=== PATIENT | female | born 1960 | race Caucasian/White ===

== ENCOUNTER 2018-01-24 18:15 | Inpatient (IN) | payer OTHER ==
[~2018-01-24] VITALS: Ht 162.6 cm; Wt 58.1 kg
--- NOTE | ~2018-01-24 | PROC ---
[address] [address] PROCEDURE REPORT Name: JP WOODS Room: [address] IN M.R.#: [id number] Admission: 01/24/18 Attend Phys: Damián Gordillo MD Discharge: 01/29/18 Date of : 62 Report #: [id number] THIS REPORT FOR: //name// For GI report, Please see the Provation report in Perceptive 7 content. By: 1256Medical Records Staff ANTONIO /JOSE
[2018-01-24 18:44] VITALS: BP 150/100
[2018-01-24] MEDS ORDERED: LISINOPRIL10 MG PO (18:47)
[2018-01-24] MEDS ORDERED: CHLORDIAZEPOXID25 M1 PO (19:44)
[2018-01-24 20:13] LABS: HEMATOCRIT 42.8 % (37.0-47.0); HEMOGLOBIN 14.4 gm/dL (12.0-15.0); MCH 35.2 pg (26.0-34.0); MCHC 33.7 g/dL (28.0-37.0); MCV 104.6 fL (80.0-100.0); MPV 8.2 fl. (7.2-11.1); NUCLEATED RBCS 0 /100WBC; PLATELET COUNT* 198 thou/uL (150-400); RDW-CV 14.4 % (10.5-14.5); WBC 15.4 thou/uL (4.0-11.0)
[2018-01-24 20:24] LABS: INR 1.3; PROTIME 13.8 Seconds (9.20-11.50)
[2018-01-24 20:27] LABS: ANION GAP 7 mmol/L (7-16); BUN 4 mg/dL (7-18); CALCIUM 8.8 mg/dL (8.5-10.1); CHLORIDE 99 mmol/L (98-107); CO2 30 mmol/L (21-32); CREATININE 0.7 mg/dL (0.6-1.3); GLUCOSE 107 mg/dL (70-99); POTASSIUM 3.5 mmol/L (3.5-5.1); SODIUM 136 mmol/L (136-145)
[2018-01-24 20:38] LABS: ALBUMIN 3.1 g/dL (3.4-5.0); ALKALINE PHOSPHATASE 382 U/L (46-116); LIPASE 145 U/L (73-393); NT-PRO BRAIN NAT PEPTIDE 172 pg/mL (<300); SGOT 131 U/L (15-37); SGPT 98 U/L (30-65); TOTAL BILIRUBIN 1.8 mg/dL (<0.1-1.0); TOTAL PROTEIN 7.2 g/dL (6.4-8.2); TROPONIN-I LEVEL <0.06 ng/mL (<0.06)
[2018-01-24 20:43] LABS: URINE BLOOD 3+ (Negative); URINE CLARITY CLEAR; URINE COLOR YELLOW; URINE GLUCOSE-RANDOM TRACE (Negative); URINE KETONES TRACE (Negative); URINE NITRITE-REFLEX NEGATIVE (Negative); URINE PROTEIN 2+ (Negative); URINE SPECIFIC GRAVITY 1.015 (1.005-1.030)
[2018-01-24 20:46] LABS: AMMONIA < 10 umol/L (11-32)
[2018-01-24 20:47] LABS: ICTOTEST (BILI CONFIRMATORY) Positive (Negative); URINE BILIRUBIN 2+ (Negative); URINE LEUKOCYTES-REFLEX 3+ (Negative)
[2018-01-24 20:50] LABS: HYALINE CASTS >10 Many /LPF (None Seen); MUCUS 0-3 Light strn/LPF (None Seen); SQUAMOUS >10 Many /LPF (0-3)
[2018-01-24 20:51] LABS: CRYSTALS None Seen /LPF (None Seen); URINE RBC 3-10 Few /HPF (0-2)
[2018-01-24 21:00] LABS: ABSOLUTE LYMPHOCYTES 1.2 thou/uL (0.8-5.3); ABSOLUTE MONOCYTES 0.8 thou/uL (0.0-1.2); ABSOLUTE NEUTROPHILS 13.4 thou/uL (1.6-8.1); PLATELET ESTIMATE ADEQUATE
[2018-01-24 22:54] VITALS: BP 141/74
[2018-01-24 23:15] VITALS: BP 137/81
[2018-01-25 00:01] LABS: AMP/METHAMP Negative (Negative); BARBITURATES Negative (Negative); BENZODIAZEPINES POSITIVE (Negative); COCAINE Negative (Negative); METHADONE Negative (Negative); OPIATES Negative (Negative); PCP Negative (Negative); THC Negative (Negative)
[2018-01-25 01:15] LABS: HEMATOCRIT 37.4 % (37.0-47.0); HEMOGLOBIN 12.5 gm/dL (12.0-15.0); MCH 35.6 pg (26.0-34.0); MCHC 33.3 g/dL (28.0-37.0); MCV 106.7 fL (80.0-100.0); MPV 8.5 fl. (7.2-11.1); RBC 3.51 mil/uL (4.20-5.00); RDW-CV 14.6 % (10.5-14.5); WBC 13.6 thou/uL (4.0-11.0)
[2018-01-25 01:37] LABS: ALBUMIN 2.4 g/dL (3.4-5.0); CALCIUM 8.3 mg/dL (8.5-10.1); CREATININE 0.7 mg/dL (0.6-1.3); TOTAL BILIRUBIN 1.3 mg/dL (<0.1-1.0); TOTAL PROTEIN 5.8 g/dL (6.4-8.2)
[2018-01-25 04:03] VITALS: BP 113/67
[2018-01-25 07:00] VITALS: BP 118/73
--- NOTE | 2018-01-25 10:20 | EKG ---
[place] [address] ELECTROCARDIOGRAM REPORT Name: CHUCKJP Room: [address] ADM IN [facility].#: [id number] Admission: 01/24/18 Attend Phys: Damián Gordillo MD Discharge: Date of : 62 Report #: [id number] THIS REPORT FOR: //name// [facility] ED Test Date: 2018-01-24 Test Time: 19:28:53 Pat Name: JP WOODS Department: Room: [facility] Gender: F Exchange Architect: KISHORE : 1960 Requested By: Arlene Phan Order Number: [id number] MD: Ash Laurent Measurements Intervals [place] Rate: 110 P: 61 GA: 165 QRS: -21 QRSD: 83 T: 18 QT: 348 QTc: 471 Interpretive Statements Sinus tachycardia Borderline left axis deviation Low voltage, extremity and precordial leads Baseline wander in lead(s) II,III,aVF No previous ECG available for comparison Electronically Signed On 01-25-2018 10:19:56 CDT by Ash Laurent [email or web address] <ELECTRONICALLY SIGNED> By: Ash Laurent MD, FACC 01/25/18 1019 27 27 Ash Laurent MD, [facility] /EPI
[2018-01-25 12:22] VITALS: BP 118/68
[2018-01-25 16:30] VITALS: BP 118/82
[2018-01-25 20:02] VITALS: BP 120/75
[2018-01-26] VITALS (7 sets, daily range): BP systolic 103–137; BP diastolic 56–84
[2018-01-26 04:55] LABS: HEMATOCRIT 37.7 % (37.0-47.0); HEMOGLOBIN 12.5 gm/dL (12.0-15.0); MCH 35.7 pg (26.0-34.0); MCHC 33.2 g/dL (28.0-37.0); MCV 107.4 fL (80.0-100.0); MPV 8.8 fl. (7.2-11.1); RBC 3.51 mil/uL (4.20-5.00); WBC 10.9 thou/uL (4.0-11.0)
[2018-01-26 05:20] LABS: ALBUMIN 2.2 g/dL (3.4-5.0); CALCIUM 7.7 mg/dL (8.5-10.1); CREATININE 0.6 mg/dL (0.6-1.3); MAGNESIUM 1.3 mg/dL (1.8-2.4); PHOSPHORUS* 3.1 mg/dL (2.5-4.9); POTASSIUM 3.2 mmol/L (3.5-5.1); TOTAL BILIRUBIN 1.4 mg/dL (<0.1-1.0); TOTAL PROTEIN 5.5 g/dL (6.4-8.2)
[2018-01-27 04:00] VITALS: BP 108/69
[2018-01-27 05:00] LABS: HEMATOCRIT 37.4 % (37.0-47.0); HEMOGLOBIN 12.7 gm/dL (12.0-15.0); MCH 36.3 pg (26.0-34.0); MCHC 33.9 g/dL (28.0-37.0); MCV 107.2 fL (80.0-100.0); MPV 8.8 fl. (7.2-11.1); RBC 3.49 mil/uL (4.20-5.00); RDW-CV 14.1 % (10.5-14.5); WBC 11.9 thou/uL (4.0-11.0)
[2018-01-27 05:27] LABS: ALBUMIN 2.3 g/dL (3.4-5.0); CALCIUM 8.4 mg/dL (8.5-10.1); CREATININE 0.6 mg/dL (0.6-1.3); MAGNESIUM 1.4 mg/dL (1.8-2.4); POTASSIUM 3.9 mmol/L (3.5-5.1); TOTAL BILIRUBIN 1.5 mg/dL (<0.1-1.0); TOTAL PROTEIN 5.7 g/dL (6.4-8.2)
[2018-01-27 08:00] VITALS: BP 104/65
[2018-01-27 12:35] VITALS: BP 100/57
[2018-01-27 16:34] VITALS: BP 121/68
[2018-01-27 20:00] VITALS: BP 114/62
[2018-01-27 23:00] VITALS: BP 136/81
[2018-01-28] VITALS (17 sets, daily range): BP systolic 118–140; BP diastolic 71–84
[2018-01-28 10:07] LABS: ANA INTERPRETATION Negative (Negative)
--- NOTE | 2018-01-28 11:22 | CON ---
[address] [address] CONSULTATION Name: CHUCKJP Room: [address] IN M.R.#: [id number] Admission: 01/24/18 Attend Phys: Damián Gordillo MD Discharge: Date of : 62 Report #: [id number] THIS REPORT FOR: //name// CC: Damián Moy HISTORY OF PRESENT ILLNESS: The patient is a pleasant 57-year-old female with past medical history of alcohol abuse, who was referred by her PCP to be admitted to the hospital for elevated WBC count. She admits to having generalized weakness but denies any fevers. The patient denies any significant cough, nausea, vomiting or diarrhea. However, she does report intermittent dysuria. The patient reports drinking heavily in the past. She reports drinking excess every once for at least 20 years and would drink up to a fifth of hard liquor per day. The amount of liquor assumption has varied recently as she began attending alcohol addiction group sessions. However, she continues to drink alcohol despite this. She denies prior episodes of jaundice, confusion, abdominal distention, hematemesis or hematochezia. PAST MEDICAL HISTORY: Significant for alcohol abuse and hypertension. PAST SURGICAL HISTORY: None. FAMILY HISTORY: No family history of alcohol abuse, liver disease or colorectal cancer. SOCIAL HISTORY: The patient never smoked or consumed recreational drugs. At the current time, she drinks four glasses of vodka a day. REVIEW OF SYSTEMS: A comprehensive 10-point review of systems is negative except what is mentioned in the HPI. PHYSICAL EXAMINATION: VITAL SIGNS: Temperature 37.2, pulse rate 89, respirations 17, blood pressure 120/75 and pulse ox 97% on room air. GENERAL: The patient is alert, awake and oriented x 3. HEENT: Pupils are equal, round and reactive to light and accommodation. There is no scleral icterus. Mucous membranes are moist. There is no congestion. SKIN: There is no palmar erythema. No spider angiomata. NEUROLOGICAL: Does not demonstrate any asterixis. ABDOMEN: Soft. There is no distention. No guarding or rigidity. No fluid thrill. Bowel sounds are present. LUNGS: Clear to auscultation bilaterally. CARDIOVASCULAR: Rate and rhythm regular. S1 and S2 present. There is no pedal edema. LABORATORY DATA: Hemoglobin 12.5, hematocrit 37.4, MCV is 106.7 and WBC count 13.6. Creatinine 0.7. AST 102, ALT 79, alkaline phosphatase 311 and total [facility] [address] [place] [address] CONSULTATION Name: JP WOODS Room: [address] IN [facility]#: [id number] Admission: 01/24/18 Attend Phys: Damián Gordillo MD Discharge: Date of : 62 Report #: [id number] bilirubin 1.3. RADIOLOGICAL DATA: Abdominal ultrasound demonstrates small amount of ascites surrounding liver and spleen. They are too small for accurate paracentesis. Thrombosis of the left portal vein. ASSESSMENT AND PLAN: This is a very pleasant 57-year-old female with past medical history significant for alcohol abuse, was referred by her primary care physician when she was found to have elevated WBC count as an outpatient. The Gastrointestinal service has been consulted for evaluation of portal vein thrombosis. The patient has not had any overt signs of chronic liver disease on physical exam and abdominal imaging shows her spleen to be normal in size. However, there is trace ascites with a suggestion for portal hypertension. Given her significant history of alcohol abuse, the patient may have early cirrhosis causing this. I am going to order workup for chronic liver disease to rule out any other potential contributors to the liver disease. We will have to get an esophagogastroduodenoscopy to look for varices and then I would finally recommend a liver biopsy on Sunday for diagnosis of cirrhosis. Anticoagulation can be started after the liver biopsy is performed. For portal vein thrombosis, anticoagulation should be continued for 6 months, which usually results in recanalization. We will have to follow up with her in the Gastrointestinal Clinic for management of a chronic liver disease. Alcohol cessation has been strongly advised. <ELECTRONICALLY SIGNED> By: Jorge Richey MD 01/28/18 1122 1815 [id number] Richey MD /nt
[2018-01-29 04:15] VITALS: BP 112/66
[2018-01-29 05:39] LABS: HEMATOCRIT 35.9 % (37.0-47.0); HEMOGLOBIN 11.8 gm/dL (12.0-15.0); MCH 35.4 pg (26.0-34.0); MCHC 32.8 g/dL (28.0-37.0); MCV 107.7 fL (80.0-100.0); MPV 8.3 fl. (7.2-11.1); RBC 3.33 mil/uL (4.20-5.00); RDW-CV 13.8 % (10.5-14.5); WBC 11.4 thou/uL (4.0-11.0)
[2018-01-29 05:47] LABS: INR 1.4
[2018-01-29 05:53] LABS: ALBUMIN 2.4 g/dL (3.4-5.0); CALCIUM 8.2 mg/dL (8.5-10.1); CREATININE 0.6 mg/dL (0.6-1.3); POTASSIUM 4.2 mmol/L (3.5-5.1); TOTAL BILIRUBIN 1.5 mg/dL (<0.1-1.0); TOTAL PROTEIN 5.3 g/dL (6.4-8.2)
[2018-01-29 08:00] VITALS: BP 103/48
[2018-01-29 12:05] LABS: HEPATITIS B SURFACE AG Negative (Negative)
[2018-01-29] MEDS ORDERED: CIPRO500 MG PO (12:17)
[2018-01-29] MEDS ORDERED: VITAMIN B-1100 M1 PO (12:18)
[2018-01-29] MEDS ORDERED: PEPCID20 MG PO (12:18)
[2018-01-29 12:30] VITALS: BP 103/48
[2018-01-29 12:33] VITALS: BP 103/48
[2018-01-29 12:40] VITALS: BP 92/55
--- NOTE | 2018-02-14 12:05 | PATH ---
[address] [address] PATHOLOGY RPT PROCEDURE Name: CHUCKSTEPHANIE Room: [address] IN M.R.#: [id number] Admission: 01/24/18 Date of : 62 Discharge: 01/29/18 Report #: [id number] Path Case #: [id number] [facility] Accession Number: [id number] . 01 Material submitted: . LIVER . 01 Clinical history: . Cirrhosis . 02 Diagnosis: Liver, biopsy: - Hepatic parenchyma with macrosteatosis and portal inflammation - This case will be sent to [facility] for consultation, report to follow in an addendum. (MAP;02/04/2018) QMS/02/04/2018 . 02 Addendum: . Special studies report received from [address] [address], on case [id number], labeled with their number [id number], dated 02/08/2018. . [facility] Pathology Consultation . Pathology Consult . Interpretation . 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 (See comment.) . COMMENT Thank you for sending this case for consultation. I have reviewed this case, and I agree with your impression. The needle biopsy of the liver is an adequate specimen with many portal tracts for review. The portal tracts are expanded by mild inflammatory infiltrate with mild bile ductular proliferation and fibrosis. Focal interface activity is present. The interlobular bile duct branches are intact. An incidental von Meyenburg complex is also identified. The lobular parenchyma shows mild macrovesicular steatosis (approximately 20-30% of liver parenchyma), associated with focal ballooning degeneration and marked Meena body formation with prominent neutrophilic satellitosis. Scattered necroinflammation foci and acidophilic bodies can also be seen. Focal hepatocanalicular cholestasis is present. The Trichrome stain (block A1) [place] [address] PATHOLOGY RPT PROCEDURE Name: CHUCKSTEPHANIE Room: [address] DIS IN M.R.#: [id number] Admission: 01/24/18 Date of : 62 Discharge: 01/29/18 Report #: [id number] Path Case #: [id number] shows focal pericellular fibrosis and bridging fibrosis with regenerative nodules, consistent with evolving cirrhosis. The CMV immunostain (block A1) is negative. The copper stain (block A1) is negative. The submitted iron stain shows minimal hemosiderosis predominately in Kupffer cells. The PAS-D stain is negative for intracytoplasmic hyaline globules in hepatocytes. . The patient is a 57-year-old female with no detailed clinical information being provided. Her lab tests show AST 40, ALT 33, alkaline phosphatase 189, and total bilirubin at 1.5. As you can see, the findings in this liver biopsy are those of steatohepatitis with significant hepatocyte injury including Meena body formation and neutrophilic satellitosis. As you know, distinction between alcoholic liver disease (ALD) and nonalcoholic fatty liver disease (NAFLD) cannot be made with certainty based on morphologic evaluation; this requires correlation with the patient's clinical and laboratory data including the patient's gender, mean corpuscular volume (MCV), AST/ALT ratio and body mass index (BMI). An ALD/NAFLD Index (ANI) derived from these objective variables can help to differentiate ALD from NAFLD due to common metabolic disorders (Deniz W et al, Utility of a new model to diagnose an alcoholic basis for steatohepatitis. Gastroenterology 2006;131:1057-63). ANI cannot distinguish ALD from uncommon causes of NAFLD such as Oj's disease and drug-induced steatohepatitis (e.g. Amiodarone, Methotrexate, Corticosteroids, and Tamoxifen). ANI and probability of alcoholic liver disease can be calculated using the following web link: [email or web address]/gi-rst/jherhntzm13.html . Of note, significant Meena body formation with neutrophilic satellitosis is well known for amiodarone-induced liver injury. Clinical correlation is necessary to rule out this possibility or other drug/toxin-induced liver injury. . Thank you for the opportunity to be involved in this case. Your material is being returned. Please let us know of any pertinent follow-up. If you have any questions, please do not hesitate to reach me at [phone]. . Material Received A. [id number]: Liver 24 stained slides, 2 blocks . Report electronically signed by Jude Ruth M.D. [phone] I verify that I have examined all relevant slides/materials for the specimen(s) and rendered or confirmed the diagnosis. . . Disclaimer This test was developed and its performance [place] [address] PATHOLOGY RPT PROCEDURE Name: STEPHANIE WOODS Room: [address] IN [facility].#: [id number] Admission: 01/24/18 Date of : 62 Discharge: 01/29/18 Report #: [id number] Path Case #: [id number] [facility] in a manner consistent with CLIA requirements. This test has not been cleared or approved by the U.S. Food and Drug Administration. . A complete copy of the report is on file. . Professional services [place] [address]. [facility] by [facility] [address] [place] [address], [address], [place] [address]. . (AMJ 02/08/2018) . AZJ/02/08/2018 Addendum Electronically Signed by Robbie Brown M.D. . 02 Electronically signed: . Robbie Brown MD, Pathologist NPI- [id number] . 01 Gross description: . The specimen is received in formalin, labeled "Stephanie Woods, liver BX", are three jara brown needle cores measuring 2.0 cm, 1.9 cm and 1.8 cm in length and up to 0.1 cm in diameter, the specimen is entirely submitted in A1-A3. (SWS; 01/29/2018) SHS/SHS . 02 Pathologist provided ICD-10: K76.9 . 02 CPT . 231025 Specimen Comment: A courtesy copy of this report has been sent to Specimen Comment: [phone], , , . Specimen Comment: Report sent to ,DR SHETH,DR LONDON / Specimen Comment: DR VAZQUEZ Specimen Comment: A duplicate report has been generated due to demographic updates. Performed at: 01 [facility] [address] [place] [address] [address], [place], [place] [id number] MD Bill Mccall MD Phone: [phone] Performed at: 02 [facility] [address] [id number] MD Vane Owen MD Phone: [phone]
--- NOTE | 2018-02-22 14:56 | PATH ---
[address] [address] PATHOLOGY RPT PROCEDURE Name: STEPHANIE WOODS Room: [address] IN M.R.#: [id number] Admission: 01/24/18 Date of : 62 Discharge: 01/29/18 Report #: [id number] Path Case #: [id number] [facility] Accession Number: [id number] . 01 Material submitted: . BIOPSY,ANTRAL EROSION . 01 Clinical history: . Random biopsy-gastric . 02 Diagnosis: Antral erosion, biopsy: - Mild chronic inactive gastritis with prominent reactive type changes. - An H. pylori immunostain is negative (block A1; appropriate control). . (MAP:lucy; 01/29/2018) QMS/01/29/2018 . 02 Electronically signed: . Robbie Brown MD, Pathologist NPI- [id number] . 01 Gross description: . The specimen is received in formalin, labeled "Babak, Stephanie, biopsies antral erosion", is an irregular fragment of jara soft tissue measuring 0.5 x 0.2 x 0.1 cm, entirely submitted in A1. (SWS; 01/28/2018) SHS/SHS . 02 Pathologist provided ICD-10: K29.50 . 02 CPT . 357046, E68310 Specimen Comment: Report sent to ,DR SHETH / DR LONDON Performed at: 01 [facility] [address], [place], [place] [id number] MD Bill Mccall MD Phone: [phone] Performed at: 02 [facility] [address] [place], [place] [id number] MD Sharan Mukherjee MD Phone: [phone]
== END 2018-01-29 13:20 | disposition home or self-care (01) | DRG 432 ==
LOC: M.ERS 18:15 → M.2W 22:10 → M.TBA-ER 22:10 → M.2W 22:52
PROVIDERS: Emergency Medicine; Internal Medicine; Internal Medicine Gastroenterology; Physician Assistant; ADMIT Internal Medicine
PROC: 0DJ08ZZ Inspection of Upper Intestinal Tract, Via Natural or Artificial Opening Endoscopic (ICD-10-PCS; principal; 2018-01-26)
PROC: 0FB03ZX Excision of Liver, Percutaneous Approach, Diagnostic (ICD-10-PCS; 2018-01-28)
DX: K70.30 Alcoholic cirrhosis of liver without ascites (principal); I81 Portal vein thrombosis; G93.41 Metabolic encephalopathy; R65.11 Systemic inflammatory response syndrome (SIRS) of non-infectious origin with acute organ dysfunction; N39.0 Urinary tract infection, site not specified; F10.230 Alcohol dependence with withdrawal, uncomplicated; K44.9 Diaphragmatic hernia without obstruction or gangrene; I86.4 Gastric varices; I10 Essential (primary) hypertension; G31.84 Mild cognitive impairment of uncertain or unknown etiology; K70.10 Alcoholic hepatitis without ascites; Z79.899 Other long term (current) drug therapy

== ENCOUNTER → 2018-12-27 | Outpatient (CLI) | payer OTHER ==
[~2018-12-27] MED LIST: CHLORDIAZEPOXID25 M1 PO; CIPRO500 MG PO; LISINOPRIL10 MG PO; PEPCID20 MG PO; VITAMIN B-1100 M1 PO
== END ==
LOC: M.RAD 14:00
DX: Z12.31 Encounter for screening mammogram for malignant neoplasm of breast (principal)

== ENCOUNTER → 2020-01-22 | Outpatient (CLI) | payer OTHER | LOC: M.CT 09:00 | PROVIDERS: ATTEND Nurse Practitioner Family | DX: E78.00 Pure hypercholesterolemia, unspecified (principal) ==

== ENCOUNTER → 2020-01-30 | Outpatient (CLI) | payer OTHER | LOC: M.RAD 14:10 | PROVIDERS: ATTEND Nurse Practitioner Family | DX: Z12.31 Encounter for screening mammogram for malignant neoplasm of breast (principal) ==

== ENCOUNTER → 2020-05-03 | Outpatient (CLI) | payer OTHER ==
[~2020-05-03] MED LIST changes: +NEURONTIN 300M300 M2 PO; +PRAVASTATIN SOD20 MG PO; +VOLTAREN50 MG PO
== END ==
LOC: M.PC 09:28
PROVIDERS: ATTEND Physical Medicine & Rehabilitation
DX: M19.012 Primary osteoarthritis, left shoulder (principal); M19.011 Primary osteoarthritis, right shoulder; M43.16 Spondylolisthesis, lumbar region; M85.819 Other specified disorders of bone density and structure, unspecified shoulder; M47.816 Spondylosis without myelopathy or radiculopathy, lumbar region; M16.10 Unilateral primary osteoarthritis, unspecified hip; M41.86 Other forms of scoliosis, lumbar region; M25.742 Osteophyte, left hand

== ENCOUNTER → 2020-05-19 | Outpatient (CLI) | payer OTHER | END | disposition home or self-care (01) | LOC: M.PC 09:50 | PROVIDERS: ATTEND Physical Medicine & Rehabilitation | DX: M25.542 Pain in joints of left hand (principal); M18.12 Unilateral primary osteoarthritis of first carpometacarpal joint, left hand; I10 Essential (primary) hypertension; I25.10 Atherosclerotic heart disease of native coronary artery without angina pectoris; E78.5 Hyperlipidemia, unspecified; M19.90 Unspecified osteoarthritis, unspecified site; K70.30 Alcoholic cirrhosis of liver without ascites; Z98.890 Other specified postprocedural states; Z79.899 Other long term (current) drug therapy ==

== ENCOUNTER → 2021-02-04 | Outpatient (CLI) | payer OTHER | LOC: M.RAD 12:31 | PROVIDERS: ATTEND Nurse Practitioner Family | DX: Z12.31 Encounter for screening mammogram for malignant neoplasm of breast (principal) ==